=== PATIENT | male | born 1950 | race Caucasian/White ===

== ENCOUNTER 2020-11-11 15:44 | Inpatient (IN) | payer BC, MEDICARE ==
[2020-11-11] MEDS ORDERED: Ondansetron 4 MG/2 ML SDV IVPUSH ONE (16:58)
[2020-11-11] MEDS ORDERED: Sodium Chloride 0.9% 1,000 ML IV SCH ×2 (17:00→21:25)
--- NOTE | 2020-11-11 17:14 | EDM.PDOC ---
ED HPI GENERAL MEDICAL PROBLEM - General Chief Complaint: Fever Stated Complaint: FEVER,HEADACHE,CHILLS Time Seen by Provider: 11/11/20 15:54 Source of Information: Reports: Patient History Limitations: Reports: No Limitations - History of Present Illness INITIAL COMMENTS - FREE TEXT/NARRATIVE: 70 yo male presents to the ER with 2 day hx of generally not feeling well. early this AM he woke with fever. Nausea and vomiting throughout the day. Headache. He did take a tramadol earlier today fro his headache with some relief. poor appetite today. He has received COVID vaccination Headache Pain Score (Numeric/FACES): 9 - Related Data Allergies Allergy/AdvReac Type Severity Reaction Status Date / Time Sulfa (Sulfonamide Allergy Severe Hives Verified 11/11/20 16:13 Antibiotics) Home Meds: Home Meds Acetaminophen/traMADol [Ultracet] 2 tab PO QAM 08/05/14 [History] Aspirin [Low Dose Aspirin EC] 81 mg PO QAM 08/05/14 [History] Baclofen 10 mg PO QPM PRN 08/05/14 [History] Ibuprofen [Motrin] 400 mg PO QID PRN 08/05/14 [History] Losartan [Cozaar] 50 mg PO QPM 08/05/14 [History] Simvastatin 40 mg PO QPM 08/05/14 [History] atenoloL [Atenolol] 2 tab PO DAILY 11/11/20 [History] Past Medical History Cardiovascular History: Reports: Hypertension Respiratory History: Reports: None Gastrointestinal History: Reports: None Genitourinary History: Reports: None Musculoskeletal History: Reports: None Neurological History: Reports: None Psychiatric History: Reports: None Endocrine/Metabolic History: Reports: None Hematologic History: Reports: None Immunologic History: Reports: None Oncologic (Cancer) History: Reports: None Dermatologic History: Reports: None - Infectious Disease History Infectious Disease History: Reports: C-Difficile, Influenza, Measles, Mumps - Past Surgical History HEENT Surgical History: Reports: Tonsillectomy GI Surgical History: Reports: Hernia Repair/Other Neurological Surgical History: Reports: Lumbar Spine Musculoskeletal Surgical History: Reports: None Social & Family History - Tobacco Use Tobacco Use Status *Q: Never Tobacco User - Caffeine Use Caffeine Use: Reports: Coffee, Soda Caffeine Use Comment: occ - Recreational Drug Use Recreational Drug Use: No ED ROS GENERAL - Review of Systems Review Of Systems: See Below Constitutional: Reports: Fever, Chills, Malaise, Fatigue HEENT: Reports: Rhinitis, Sinus Problem. Denies: Throat Pain, Throat Swelling Respiratory: Reports: Cough. Denies: Shortness of Breath, Wheezing Cardiovascular: Denies: Chest Pain GI/Abdominal: Reports: Abdominal Pain, Nausea, Vomiting Skin: Denies: Rash Neurological: Reports: Headache ED EXAM, GI/ABD - Physical Exam Exam: See Below Exam Limited By: No Limitations General Appearance: Alert, WD/WN, No Apparent Distress Head: Atraumatic, Normocephalic Neck: Supple, Non-Tender, Lymphadenopathy (R), Lymphadenopathy (L) Respiratory/Chest: No Respiratory Distress, Lungs Clear, Normal Breath Sounds. No: Crackles, Rhonchi, Wheezing Cardiovascular: No Murmur, Tachycardia GI/Abdominal Exam: Soft, Non-Tender Neurological: Alert, Oriented Psychiatric: Normal Affect, Normal Mood Skin Exam: Warm, Dry, Intact, No Rash Course - Vital Signs Last Recorded V/S: Last Vital Signs Temp 36.6 C 11/11/20 23:00 Pulse 71 11/11/20 23:00 Resp 18 11/11/20 23:00 BP 101/53 L 11/11/20 23:00 Pulse Ox 93 L 11/11/20 23:00 - Orders/Labs/Meds Orders: Active Orders 24 hr Category Date Time Status Chest 2V [CR] Stat Exams 11/11/20 16:58 Taken CULTURE BLOOD [BC] Urgent Lab 11/11/20 18:15 Received CULTURE BLOOD [BC] Urgent Lab 11/11/20 18:26 Received Blood Culture x2 Reflex Set [OM.PC] Urgent Oth 11/11/20 18:03 Ordered Medication Orders Acetaminophen (Acetaminophen 325 Mg Tab) 650 mg PO Q4H PRN PRN Reason: Pain (Mild 1-3)/fever Acetaminophen (Acetaminophen 325 Mg Tab) 650 mg PO DAILY POR[facility] Aspirin (Aspirin 81 Mg Tab.Ec) 81 mg PO QAM P[facility] Atorvastatin Calcium (Atorvastatin 20 Mg Tab) 40 mg PO QPM POR[facility] Azithromycin (Azithromycin 250 Mg Tab) 500 mg PO Q24H PORSHA Last Admin: 11/11/20 22:04 Dose: 500 mg Documented by: DESHAUN Baclofen (Baclofen 10 Mg Tab) 10 mg PO QPM PRN PRN Reason: Spasms Guaifenesin/Dextromethorphan (Guaifenesin/Dextromethorphan 100-10 Mg/5 Ml Soln 10 Ml Cup) 10 ml PO Q4H PRN PRN Reason: Cough Sodium Chloride (Normal Saline) 1,000 mls @ 125 mls/hr IV ASDIRECTED PORSHA Ibuprofen (Ibuprofen 600 Mg Tab) 600 mg PO Q6H PRN PRN Reason: Pain/Fever Lorazepam (Lorazepam 2 Mg/Ml Sdv) 0.5 mg IVPUSH Q4H PRN PRN Reason: Nausea/Vomiting Losartan Potassium (Losartan 50 Mg Tab) 50 mg PO QPM [facility]OR[facility] Magnesium Hydroxide (Magnesium Hydroxide 400 Mg/5 Ml Susp 30 Ml Cup) 30 ml PO Q12H PRN PRN Reason: Constipation Melatonin (Melatonin 3 Mg Tab) 9 mg PO BEDTIME PRN PRN Reason: Sleep Ondansetron HCl (Ondansetron 4 Mg/2 Ml Sdv) 4 mg IV Q6H PRN PRN Reason: Nausea/Vomiting Ondansetron HCl (Ondansetron 4 Mg Tab.Dis) 4 mg PO Q6H PRN PRN Reason: Nausea able to take PO Senna/Docusate Sodium (Docusate Sodium/Sennosides 50-8.6 Mg Tab) 1 tab PO BID PRN PRN Reason: Constipation Tramadol HCl (Tramadol 50 Mg Tab) 75 mg PO QAM [facility] Labs: Laboratory Tests 11/11/20 11/11/20 11/11/20 Range/Units 17:11 17:11 17:14 WBC 24.5 H (4.5-11.0) K/uL RBC 4.99 (4.30-5.90) M/uL Hgb 15.8 H D (12.0-15.0) g/dL Hct 46.9 (40.0-54.0) % MCV 94 (80-98) fL MCH 32 H (27-31) pg MCHC 34 (32-36) % Plt Count 207 (150-400) K/uL Add Manual Diff Yes Neutrophils % (Manual) 58 (36-66) % Band Neutrophils % 28 H (5-11) % Lymphocytes % (Manual) 8 L (24-44) % Monocytes % (Manual) 6 (2-6) % Anisocytosis Few Macrocytosis Few Sodium 136 L (140-148) mmol/L Potassium 4.1 (3.6-5.2) mmol/L Chloride 99 L (100-108) mmol/L Carbon Dioxide 24 (21-32) mmol/L Anion Gap 17.1 H (5.0-14.0) mmol/L BUN 32 H D (7-18) mg/dL Creatinine 2.3 H D (0.8-1.3) mg/dL Est Cr Clr Drug Dosing TNP Estimated GFR (MDRD) 28 L (>60) Glucose 111 H (74-106) mg/dL Lactic Acid (0.4-2.0) mmol/L Calcium 9.1 (8.5-10.1) mg/dL SARS CoV-2 RNA Rapid NATANAEL Negative 11/11/20 Range/Units 18:03 WBC (4.5-11.0) K/uL RBC (4.30-5.90) M/uL Hgb (12.0-15.0) g/dL Hct (40.0-54.0) % MCV (80-98) fL MCH (27-31) pg MCHC (32-36) % Plt Count (150-400) K/uL Add Manual Diff Neutrophils % (Manual) (36-66) % Band Neutrophils % (5-11) % Lymphocytes % (Manual) (24-44) % Monocytes % (Manual) (2-6) % Anisocytosis Macrocytosis Sodium (140-148) mmol/L Potassium (3.6-5.2) mmol/L Chloride (100-108) mmol/L Carbon Dioxide (21-32) mmol/L Anion Gap (5.0-14.0) mmol/L BUN (7-18) mg/dL Creatinine (0.8-1.3) mg/dL Est Cr Clr Drug Dosing Estimated GFR (MDRD) (>60) Glucose (74-106) mg/dL Lactic Acid 1.7 (0.4-2.0) mmol/L Calcium (8.5-10.1) mg/dL SARS CoV-2 RNA Rapid NATANAEL Meds: Medications Generic Name Dose Route Start Last Admin Trade Name Freq PRN Reason Stop Dose Admin Acetaminophen 650 mg 11/11/20 21:25 Acetaminophen 325 Mg Tab PO Q4H PRN Pain (Mild 1-3)/fever Acetaminophen 650 mg 11/12/20 09:00 Acetaminophen 325 Mg Tab PO DAILY [facility] Aspirin 81 mg 11/12/20 09:00 Aspirin 81 Mg Tab.Ec PO QAM [facility] Atorvastatin Calcium 40 mg 11/12/20 17:00 Atorvastatin 20 Mg Tab PO QPM [facility] Azithromycin 500 mg 11/11/20 21:25 11/11/20 22:04 Azithromycin 250 Mg Tab PO 500 mg Q24H POR[facility] Administration Baclofen 10 mg 11/11/20 21:25 Baclofen 10 Mg Tab PO QPM PRN Spasms Guaifenesin/Dextromethorphan 10 ml 11/11/20 21:25 Guaifenesin/Dextromethorphan 100-10 Mg/5 Ml Soln 10 Ml Cup PO Q4H PRN Cough Sodium Chloride 1,000 mls @ 125 mls/hr 11/11/20 21:25 Normal Saline IV ASDIRECTED [facility] Ibuprofen 600 mg 11/11/20 21:25 Ibuprofen 600 Mg Tab PO Q6H PRN Pain/Fever Lorazepam 0.5 mg 11/11/20 21:25 Lorazepam 2 Mg/Ml Sdv IVPUSH Q4H PRN Nausea/Vomiting Losartan Potassium 50 mg 11/12/20 17:00 Losartan 50 Mg Tab PO QPM [facility] Magnesium Hydroxide 30 ml 11/11/20 21:25 Magnesium Hydroxide 400 Mg/5 Ml Susp 30 Ml Cup PO Q12H PRN Constipation Melatonin 9 mg 11/11/20 21:25 Melatonin 3 Mg Tab PO BEDTIME PRN Sleep Ondansetron HCl 4 mg 11/11/20 21:25 Ondansetron 4 Mg/2 Ml Sdv IV Q6H PRN Nausea/Vomiting Ondansetron HCl 4 mg 11/11/20 21:25 Ondansetron 4 Mg Tab.Dis PO Q6H PRN Nausea able to take PO Senna/Docusate Sodium 1 tab 11/11/20 21:25 Docusate Sodium/Sennosides 50-8.6 Mg Tab PO BID PRN Constipation Tramadol HCl 75 mg 11/12/20 09:00 Tramadol 50 Mg Tab PO QAM [facility] Discontinued Medications Generic Name Dose Route Start Last Admin Trade Name Freq PRN Reason Stop Dose Admin Acetaminophen 1,000 mg 11/11/20 17:55 11/11/20 18:01 Acetaminophen 500 Mg Tab PO 11/11/20 17:56 1,000 mg ONETIME ONE Administration Sodium Chloride 1,000 mls @ 999 mls/hr 11/11/20 17:00 11/11/20 17:51 Normal Saline IV 999 mls/hr ASDIRECTED PORSHA Administration Ciprofloxacin/Dextrose 400 mg/ 200 mls @ 200 mls/hr 11/11/20 19:18 11/11/20 19:37 Premix IV 11/11/20 20:17 200 mls/hr ONETIME ONE Administration Ondansetron HCl 4 mg 11/11/20 16:58 11/11/20 17:52 Ondansetron 4 Mg/2 Ml Sdv IVPUSH 11/11/20 16:59 4 mg ONETIME ONE Administration - Re-Assessments/Exams Free Text/Narrative Re-Assessment/Exam: 11/11/20 23:58 chest x-ray pneumonia. acute kidney injury will admit to Dr. Cooper Departure - Departure Time of Disposition: 23:59 Disposition: Admitted As Inpatient 65 Clinical Impression: Acute kidney injury Pneumonia Qualifiers: Pneumonia type: due to unspecified organism Laterality: left Lung location: lower lobe of lung Qualified Code(s): J18.9 - Pneumonia, unspecified organism - Discharge Information Sepsis Event Note (ED) - Evaluation Sepsis Screening Result: Possible Sepsis Risk - Focused Exam Vital Signs: Vital Signs Temp Pulse Resp BP Pulse Ox 11/11/20 17:52 38.1 C 83 20 133/80 93 L 11/11/20 16:21 36.7 C 102 H 20 116/98 H 92 L 11/11/20 16:09 36.7 C 102 H 20 116/98 H 92 L - My Orders Last 24 Hours: My Active Orders 11/11/20 16:58 Chest 2V [CR] Stat 11/11/20 18:03 Blood Culture x2 Reflex Set [OM.PC] Urgent 11/11/20 18:15 CULTURE BLOOD [BC] Urgent 11/11/20 18:26 CULTURE BLOOD [BC] Urgent - Assessment/Plan Last 24 Hours: My Active Orders 11/11/20 16:58 Chest 2V [CR] Stat 11/11/20 18:03 Blood Culture x2 Reflex Set [OM.PC] Urgent 11/11/20 18:15 CULTURE BLOOD [BC] Urgent 11/11/20 18:26 CULTURE BLOOD [BC] Urgent
[2020-11-11] MEDS ORDERED: Acetaminophen 500 MG Tab PO ONE (17:55)
[2020-11-11] MEDS ORDERED: Ciprofloxacin in D5W 400 MG in Premix Bag 1 BAG IV ONE ×2 (19:18)
--- NOTE | 2020-11-11 20:15 | PCM.HP.2 ---
H&P History of Present Illness - General Date of Service: 11/11/20 Admit Problem/Dx: Admission Diagnosis/Problem Admission Diagnosis/Problem Acute kidney injury Source of Information: Patient, Provider History Limitations: Reports: No Limitations - History of Present Illness Initial Comments - Free Text/Narative: CC: I was soaked with sweat HPI: Az presents to the emergency room with fevers, shaking chills, nausea, vomiting and weakness. He reports that yesterday morning he felt generally unwell but no specific symptoms. He thought he felt better as the day went on. Started to feel down again yesterday evening. Last night he woke up in the middle the night feeling very warm and was diaphoretic. Shortly thereafter he became very cold and had shaking chills. This persisted for a while and then he was subjectively very warm again. This morning he became nauseated and had several episodes of vomiting throughout the day. He has had very little to drink and nothing to eat today and very little yesterday. He does report mild cough with no sputum that started last night. He does not feel short of breath. He does not have any pleuritic chest pain and does not report any abdominal pain. No sore throat. He is not aware of any sick contacts. He does exercise regularly but has not the last 2 days because he has not felt well. Work-up in the emergency room revealed evidence for a left lung pneumonia with a white blood cell count of 24,000. He is not hypoxic at this time. His creatinine is 2.3 with a baseline of 1. He will be admitted for observation to initiate antibiotics and receive hydration. Headache Pain Score (Numeric/FACES): 7 - Related Data Allergies/Adverse Reactions: Allergies Allergy/AdvReac Type Severity Reaction Status Date / Time Sulfa (Sulfonamide Allergy Severe Hives Verified 11/11/20 16:13 Antibiotics) Home Medications: Home Meds Acetaminophen/traMADol [Ultracet] 2 tab PO QAM 08/05/14 [History] Aspirin [Low Dose Aspirin EC] 81 mg PO QAM 08/05/14 [History] Baclofen 10 mg PO QPM PRN 08/05/14 [History] Ibuprofen [Motrin] 400 mg PO QID PRN 08/05/14 [History] Losartan [Cozaar] 50 mg PO QPM 08/05/14 [History] Simvastatin 40 mg PO QPM 08/05/14 [History] Past Medical History Cardiovascular History: Reports: Hypertension Respiratory History: Reports: None Gastrointestinal History: Reports: None Genitourinary History: Reports: None Musculoskeletal History: Reports: None Neurological History: Reports: None Psychiatric History: Reports: None Endocrine/Metabolic History: Reports: None Hematologic History: Reports: None Immunologic History: Reports: None Oncologic (Cancer) History: Reports: None Dermatologic History: Reports: None - Infectious Disease History Infectious Disease History: Reports: C-Difficile, Influenza, Measles, Mumps - Past Surgical History HEENT Surgical History: Reports: Tonsillectomy GI Surgical History: Reports: Hernia Repair/Other Neurological Surgical History: Reports: Lumbar Spine Musculoskeletal Surgical History: Reports: None Social & Family History - Family History Cardiac: Reports: Heart Failure (father in 60's) - Tobacco Use Tobacco Use Status *Q: Never Tobacco User - Caffeine Use Caffeine Use: Reports: Coffee, Soda Caffeine Use Comment: occ - Recreational Drug Use Recreational Drug Use: No H&P Review of Systems - Review of Systems: Review Of Systems: See Below Free Text/Narrative: A complete 12 point review of systems was obtained. Pertinent positives and negatives are noted in the history of present illness. All other systems were reviewed and were negative except as noted. Exam - Exam Exam: See Below - Vital Signs Vital Signs: Last Vital Signs Temp 38.1 C 11/11/20 17:52 Pulse 83 11/11/20 17:52 Resp 20 11/11/20 17:52 BP 133/80 11/11/20 17:52 Pulse Ox 93 L 11/11/20 17:52 Weight: 103.4 kg - Exam Quality Assessment: No: Supplemental Oxygen General: Alert, Oriented, Cooperative. No: Mild Distress HEENT: Conjunctiva Clear. No: Mucosa Moist & [place] (dry), Scleral Icterus Neck: Supple, Trachea Midline. No: Lymphadenopathy Lungs: Normal Respiratory Effort, Decreased Breath Sounds (Mild left lung base), Crackles (Few left lung base) Cardiovascular: Regular Rate, Regular Rhythm. No: Systolic Murmur, Gallop/S3 GI/Abdominal Exam: Normal Bowel Sounds, Soft, Non-Tender, No Distention Back Exam: Normal Inspection, Full Range of Motion Extremities: No Pedal Edema. No: Increased Warmth Peripheral Pulses: 2+: Dorsalis Pedis (L), Dorsalis Pedis (R) Skin: Warm, Dry. No: Rash Neuro Extensive - Mental Status: Alert, Oriented x3, Nl Response to Commands Neuro Extensive - Motor, Sensory, Reflexes: No: Dysarthria, Abnormal Motor, Tremor Psychiatric: Alert, Normal Affect - Patient Data Lab Results Last 24 hrs: Laboratory Results - last 24 hr 11/11/20 11/11/20 11/11/20 Range/Units 17:11 17:11 17:14 WBC 24.5 H (4.5-11.0) K/uL RBC 4.99 (4.30-5.90) M/uL Hgb 15.8 H D (12.0-15.0) g/dL Hct 46.9 (40.0-54.0) % MCV 94 (80-98) fL MCH 32 H (27-31) pg MCHC 34 (32-36) % Plt Count 207 (150-400) K/uL Add Manual Diff Yes Neutrophils % (Manual) 58 (36-66) % Band Neutrophils % 28 H (5-11) % Lymphocytes % (Manual) 8 L (24-44) % Monocytes % (Manual) 6 (2-6) % Anisocytosis Few Macrocytosis Few Sodium 136 L (140-148) mmol/L Potassium 4.1 (3.6-5.2) mmol/L Chloride 99 L (100-108) mmol/L Carbon Dioxide 24 (21-32) mmol/L Anion Gap 17.1 H (5.0-14.0) mmol/L BUN 32 H D (7-18) mg/dL Creatinine 2.3 H D (0.8-1.3) mg/dL Est Cr Clr Drug Dosing TNP Estimated GFR (MDRD) 28 L (>60) Glucose 111 H (74-106) mg/dL Lactic Acid (0.4-2.0) mmol/L Calcium 9.1 (8.5-10.1) mg/dL SARS CoV-2 RNA Rapid [place]NAEL Negative 11/11/20 Range/Units 18:03 WBC (4.5-11.0) K/uL RBC (4.30-5.90) M/uL Hgb (12.0-15.0) g/dL Hct (40.0-54.0) % MCV (80-98) fL MCH (27-31) pg MCHC (32-36) % Plt Count (150-400) K/uL Add Manual Diff Neutrophils % (Manual) (36-66) % Band Neutrophils % (5-11) % Lymphocytes % (Manual) (24-44) % Monocytes % (Manual) (2-6) % Anisocytosis Macrocytosis Sodium (140-148) mmol/L Potassium (3.6-5.2) mmol/L Chloride (100-108) mmol/L Carbon Dioxide (21-32) mmol/L Anion Gap (5.0-14.0) mmol/L BUN (7-18) mg/dL Creatinine (0.8-1.3) mg/dL Est Cr Clr Drug Dosing Estimated GFR (MDRD) (>60) Glucose (74-106) mg/dL Lactic Acid 1.7 (0.4-2.0) mmol/L Calcium (8.5-10.1) mg/dL SARS CoV-2 RNA Rapid NATANAEL Result Diagrams: 11/11/20 17:11 11/11/20 17:11 Imaging Impressions Last 24 hrs: Chest [id number] personally reviewed-there is evidence for a slight left lower lung infiltrate. Heart size is normal. No obvious mass or effusion. There is an apparent device near the anterior spinal column in the mid thoracic spine Sepsis Event Note - Evaluation Sepsis Screening Result: Possible Sepsis Risk - Focused Exam Vital Signs: Vital Signs Temp Pulse Resp BP Pulse Ox 11/11/20 17:52 38.1 C 83 20 133/80 93 L 11/11/20 16:21 36.7 C 102 H 20 116/98 H 92 L 11/11/20 16:09 36.7 C 102 H 20 116/98 H 92 L *Q Meaningful Use (ADM) - VTE Risk Assess *Q Each Risk Factor Represents 1 Point: Obesity ( BMI > 25 kg/m2), Serious lung disease including pneumonia Total Score 1 Point Risk Factors: 2 Each Risk Factor Represents 2 Points: Age 60 - 74 Years Total Score 2 Point Risk Factors: 2 Each Risk Factor Represents 3 Points: None Total Score 3 Point Risk Factors: 0 Each Risk Factor Represents 5 Points: None Total Score 5 Point Risk Factors: 0 Venous Thromboembolism Risk Factor Score *Q: 4 - Problem List (1) Acute kidney injury SNOMED Code(s): 22681473, 46702270 ICD Code: N17.9 - ACUTE KIDNEY FAILURE, UNSPECIFIED Status: Acute Current Visit: Yes (2) Left lower lobe pneumonia SNOMED Code(s): 357640125 ICD Code: J18.9 - PNEUMONIA, UNSPECIFIED ORGANISM Status: Acute Current Visit: Yes Qualifiers: Pneumonia type: due to unspecified organism Qualified Code(s): J18.9 - Pneumonia, unspecified organism (3) Hypertension SNOMED Code(s): 03708937 ICD Code: I10 - ESSENTIAL (PRIMARY) HYPERTENSION Status: Chronic Current Visit: Yes Qualifiers: Hypertension type: primary hypertension Qualified Code(s): I10 - Essential (primary) hypertension Problem List Initiated/Reviewed/Updated: Yes Orders Last 24hrs: Active Orders 24 hr Category Date Time Status Patient Status Manage Transfer [TRANSFER] Routine ADT 11/11/20 20:07 Ordered Chest 2V [CR] Stat Exams 11/11/20 16:58 Taken CULTURE BLOOD [BC] Urgent Lab 11/11/20 18:15 Received CULTURE BLOOD [BC] Urgent Lab 11/11/20 18:26 Received Ciprofloxacin in D5W [Cipro in D5W 400 MG/200 ML] 400 Med 11/11/20 19:18 Active mg Premix Bag 1 bag IV ONETIME Sodium Chloride 0.9% [Normal Saline] 1,000 ml Med 11/11/20 17:00 Active IV ASDIRECTED Blood Culture x2 Reflex Set [OM.PC] Urgent Oth 11/11/20 18:03 Ordered Isolation [COMM] Stat Oth 11/11/20 16:56 Ordered Resuscitation Status Routine Resus Stat 11/11/20 20:08 Ordered Medication Orders Sodium Chloride (Normal Saline) 1,000 mls @ 999 mls/hr IV ASDIRECTED PORSHA Last Admin: 11/11/20 17:51 Dose: 999 mls/hr Documented by: PREILOR Ciprofloxacin/Dextrose 400 mg/ (Premix) 200 mls @ 200 mls/hr IV ONETIME ONE Stop: 11/11/20 20:17 Last Admin: 11/11/20 19:37 Dose: 200 mls/hr Documented by: MARTA Assessment/Plan Comment:: ASSESSMENT AND PLAN - Acute kidney injury-creatinine 2.3 with a baseline of 1. Likely related to intravascular volume depletion with poor intake and vomiting. I anticipate this will improve quickly with IV fluids. -Fluids overnight and labs in the morning Left lower lobe pneumonia-not hypoxic. CURB 65 score is 2. White count is elevated but he does not appear ill and has relatively few symptoms of pneumonia. No chronic diseases to suggest he needs real broad-spectrum antibiotics. -Antibiotic coverage with a azithromycin -Supplement oxygen if he becomes hypoxic -Symptomatic management of cough Essential hypertension-blood pressure well controlled by history. -Continue home medications Maintenance issues - -DVT prophylaxis-mechanical -GI prophylaxis-not indicated -Nutrition-regular -Barton catheter-not indicated CODE STATUS -full code Admission justification -this patient will be admitted for observation to initiate antibiotics and provide hydration along with repeat laboratory studies in the morning. Disposition -I anticipate discharge home after the hospital stay Primary care physician -Dr. Osmin Cooper M.D. - Mortality Measure Prognosis:: Good
[2020-11-11] MEDS ORDERED: Azithromycin 250 MG Tab PO SCH (21:25)
[2020-11-11] MEDS ORDERED: Magnesium Hydroxide 400 MG/5 ML Susp 30 ML Cup PO PRN (21:25)
[2020-11-11] MEDS ORDERED: Baclofen 10 MG Tab PO PRN (21:25)
[2020-11-11] MEDS ORDERED: guaiFENesin/Dextromethorphan 100-10 MG/5 ML Soln 10 ML Cup PO PRN (21:25)
[2020-11-11] MEDS ORDERED: Melatonin 3 MG Tab PO PRN (21:25)
[2020-11-11] MEDS ORDERED: Ondansetron 4 MG Tab.DIS PO PRN (21:25)
[2020-11-11] MEDS ORDERED: LORazepam 2 MG/ML SDV IVPUSH PRN (21:25)
[2020-11-12] MEDS: Ondansetron 4 MG/2 ML SDV IV PRN ×3 (04:56→21:13)
[2020-11-12] MEDS: Acetaminophen 325 MG Tab PO PRN ×2 (04:56→21:12)
[2020-11-12] MEDS ORDERED: TRAMADOL PO SCH (09:00)
[2020-11-12] MEDS ORDERED: ACETAMINOPHEN PO SCH (09:00)
[2020-11-12] MEDS: Acetaminophen 325 MG Tab PO SCH (09:41)
[2020-11-12] MEDS: cefTRIAXone 2 GM in Sodium Chloride 0.9% 50 ML IV SCH (09:42)
[2020-11-12] MEDS: Aspirin 81 MG Tab.EC PO SCH (09:42)
[2020-11-12] MEDS: traMADol 50 MG Tab PO SCH (09:46)
--- NOTE | 2020-11-12 10:49 | PCM.PN ---
- General Info Date of Service: 11/12/20 Subjective Update: There were no acute events overnight. Patient did have 1 out of the 2 blood culture bottles come back positive for gram-negative rods. He reports that he feels well today and much better than yesterday. He does report some mild left lower quadrant abdominal pain today. No significant cough. Intermittent nausea but no vomiting. Blood pressure and heart rate have been stable. White count is slightly higher and creatinine is slightly higher this morning. Functional Status: Reports: Pain Controlled, Tolerating Diet - Review of Systems General: Denies: Fever Pulmonary: Denies: Shortness of Breath, Cough Gastrointestinal: Reports: Abdominal Pain (LLQ) - Patient Data Vitals - Most Recent: Last Vital Signs Temp 36.9 C 11/12/20 07:40 Pulse 78 11/12/20 07:40 Resp 18 11/12/20 07:40 BP 137/80 11/12/20 07:40 Pulse Ox 95 11/12/20 07:40 Weight - Most Recent: 102.965 kg I&O - Last 24 Hours: Intake & Output 11/11/20 11/12/20 11/12/20 22:59 06:59 14:59 Intake Total 1299 Balance 1299 Lab Results Last 24 Hours: Laboratory Results - last 24 hr 11/11/20 11/11/20 11/11/20 Range/Units 17:11 17:11 17:14 WBC 24.5 H (4.5-11.0) K/uL RBC 4.99 (4.30-5.90) M/uL Hgb 15.8 H D (12.0-15.0) g/dL Hct 46.9 (40.0-54.0) % MCV 94 (80-98) fL MCH 32 H (27-31) pg MCHC 34 (32-36) % Plt Count 207 (150-400) K/uL Add Manual Diff Yes Neutrophils % (Manual) 58 (36-66) % Band Neutrophils % 28 H (5-11) % Lymphocytes % (Manual) 8 L (24-44) % Monocytes % (Manual) 6 (2-6) % Anisocytosis Few Macrocytosis Few Sodium 136 L (140-148) mmol/L Potassium 4.1 (3.6-5.2) mmol/L Chloride 99 L (100-108) mmol/L Carbon Dioxide 24 (21-32) mmol/L Anion Gap 17.1 H (5.0-14.0) mmol/L BUN 32 H D (7-18) mg/dL Creatinine 2.3 H D (0.8-1.3) mg/dL Est Cr Clr Drug Dosing TNP Estimated GFR (MDRD) 28 L (>60) Glucose 111 H (74-106) mg/dL Lactic Acid (0.4-2.0) mmol/L Calcium 9.1 (8.5-10.1) mg/dL SARS CoV-2 RNA Rapid [facility] Negative 11/11/20 11/12/20 11/12/20 Range/Units 18:03 04:25 04:25 WBC 26.7 H (4.5-11.0) K/uL RBC 4.36 (4.30-5.90) M/uL Hgb 13.7 D (12.0-15.0) g/dL Hct 41.4 (40.0-54.0) % MCV 95 (80-98) fL MCH 31 (27-31) pg MCHC 33 (32-36) % Plt Count 195 (150-400) K/uL Add Manual Diff Neutrophils % (Manual) (36-66) % Band Neutrophils % (5-11) % Lymphocytes % (Manual) (24-44) % Monocytes % (Manual) (2-6) % Anisocytosis Macrocytosis Sodium 137 L (140-148) mmol/L Potassium 4.4 (3.6-5.2) mmol/L Chloride 101 (100-108) mmol/L Carbon Dioxide 26 (21-32) mmol/L Anion Gap 14.4 H (5.0-14.0) mmol/L BUN 40 H (7-18) mg/dL Creatinine 2.6 H (0.8-1.3) mg/dL Est Cr Clr Drug Dosing 25.21 Estimated GFR (MDRD) 24 L (>60) Glucose 118 H (74-106) mg/dL Lactic Acid 1.7 (0.4-2.0) mmol/L Calcium 8.6 (8.5-10.1) mg/dL SARS CoV-2 RNA Rapid [facility] Noel Results Last 24 Hours: Microbiology 11/11/20 18:15 Aerobic Blood Culture - Preliminary Blood - Arm, Right Med Orders - Current: Current Medications Acetaminophen (Acetaminophen 325 Mg Tab) 650 mg PO Q4H PRN PRN Reason: Pain (Mild 1-3)/fever Last Admin: 11/12/20 04:56 Dose: 650 mg Documented by: Acetaminophen (Acetaminophen 325 Mg Tab) 650 mg PO DAILY [facility] Last Admin: 11/12/20 09:41 Dose: 650 mg Documented by: Aspirin (Aspirin 81 Mg Tab.Ec) 81 mg PO QAM [facility] Last Admin: 11/12/20 09:42 Dose: 81 mg Documented by: Atorvastatin Calcium (Atorvastatin 20 Mg Tab) 40 mg PO QPM [facility] Azithromycin (Azithromycin 250 Mg Tab) 500 mg PO Q24H [facility] Last Admin: 11/11/20 22:04 Dose: 500 mg Documented by: Baclofen (Baclofen 10 Mg Tab) 10 mg PO QPM PRN PRN Reason: Spasms Guaifenesin/Dextromethorphan (Guaifenesin/Dextromethorphan 100-10 Mg/5 Ml Soln 10 Ml Cup) 10 ml PO Q4H PRN PRN Reason: Cough Ceftriaxone Sodium 2 gm/ (Sodium Chloride) 50 mls @ 100 mls/hr IV Q24H [facility] Last Admin: 11/12/20 09:42 Dose: 100 mls/hr Documented by: Ibuprofen (Ibuprofen 600 Mg Tab) 600 mg PO Q6H PRN PRN Reason: Pain/Fever Lorazepam (Lorazepam 2 Mg/Ml Sdv) 0.5 mg IVPUSH Q4H PRN PRN Reason: Nausea/Vomiting Losartan Potassium (Losartan 50 Mg Tab) 50 mg PO QPM [facility] Magnesium Hydroxide (Magnesium Hydroxide 400 Mg/5 Ml Susp 30 Ml Cup) 30 ml PO Q12H PRN PRN Reason: Constipation Melatonin (Melatonin 3 Mg Tab) 9 mg PO BEDTIME PRN PRN Reason: Sleep Ondansetron HCl (Ondansetron 4 Mg/2 Ml Sdv) 4 mg IV Q6H PRN PRN Reason: Nausea/Vomiting Last Admin: 11/12/20 09:50 Dose: 4 mg Documented by: Ondansetron HCl (Ondansetron 4 Mg Tab.Dis) 4 mg PO Q6H PRN PRN Reason: Nausea able to take PO Senna/Docusate Sodium (Docusate Sodium/Sennosides 50-8.6 Mg Tab) 1 tab PO BID PRN PRN Reason: Constipation Tramadol HCl (Tramadol 50 Mg Tab) 75 mg PO QAM [facility] Last Admin: 11/12/20 09:46 Dose: 75 mg Documented by: Discontinued Medications Acetaminophen (Acetaminophen 500 Mg Tab) 1,000 mg PO ONETIME ONE Stop: 11/11/20 17:56 Last Admin: 11/11/20 18:01 Dose: 1,000 mg Documented by: Sodium Chloride (Normal Saline) 1,000 mls @ 999 mls/hr IV ASDIRECTED [facility] Last Admin: 11/11/20 17:51 Dose: 999 mls/hr Documented by: Ciprofloxacin/Dextrose 400 mg/ (Premix) 200 mls @ 200 mls/hr IV ONETIME ONE Stop: 11/11/20 20:17 Last Admin: 11/11/20 19:37 Dose: 200 mls/hr Documented by: Sodium Chloride (Normal Saline) 1,000 mls @ 125 mls/hr IV ASDIRECTED [facility] Last Admin: 11/12/20 05:04 Dose: 125 mls/hr Documented by: Ondansetron HCl (Ondansetron 4 Mg/2 Ml Sdv) 4 mg IVPUSH ONETIME ONE Stop: 11/11/20 16:59 Last Admin: 11/11/20 17:52 Dose: 4 mg Documented by: - Exam Quality Assessment: No: Supplemental Oxygen General: Alert, Oriented, Cooperative, No Acute Distress Lungs: Normal Respiratory Effort, Crackles (few left lung base) Cardiovascular: Regular Rate, Regular Rhythm GI/Abdominal Exam: Soft, No Distention, Tender (mild to moderate left side and L LQ) Extremities: No Pedal Edema. No: Increased Warmth Skin: Warm, Dry Psy/Mental Status: Alert, Normal Affect - Patient Data Lab Results Last 24 hrs: Laboratory Results - last 24 hr 11/11/20 11/11/20 11/11/20 Range/Units 17:11 17:11 17:14 WBC 24.5 H (4.5-11.0) K/uL RBC 4.99 (4.30-5.90) M/uL Hgb 15.8 H D (12.0-15.0) g/dL Hct 46.9 (40.0-54.0) % MCV 94 (80-98) fL MCH 32 H (27-31) pg MCHC 34 (32-36) % Plt Count 207 (150-400) K/uL Add Manual Diff Yes Neutrophils % (Manual) 58 (36-66) % Band Neutrophils % 28 H (5-11) % Lymphocytes % (Manual) 8 L (24-44) % Monocytes % (Manual) 6 (2-6) % Anisocytosis Few Macrocytosis Few Sodium 136 L (140-148) mmol/L Potassium 4.1 (3.6-5.2) mmol/L Chloride 99 L (100-108) mmol/L Carbon Dioxide 24 (21-32) mmol/L Anion Gap 17.1 H (5.0-14.0) mmol/L BUN 32 H D (7-18) mg/dL Creatinine 2.3 H D (0.8-1.3) mg/dL Est Cr Clr Drug Dosing TNP Estimated GFR (MDRD) 28 L (>60) Glucose 111 H (74-106) mg/dL Lactic Acid (0.4-2.0) mmol/L Calcium 9.1 (8.5-10.1) mg/dL SARS CoV-2 RNA Rapid [place] Negative 11/11/20 11/12/20 11/12/20 Range/Units 18:03 04:25 04:25 WBC 26.7 H (4.5-11.0) K/uL RBC 4.36 (4.30-5.90) M/uL Hgb 13.7 D (12.0-15.0) g/dL Hct 41.4 (40.0-54.0) % MCV 95 (80-98) fL MCH 31 (27-31) pg MCHC 33 (32-36) % Plt Count 195 (150-400) K/uL Add Manual Diff Neutrophils % (Manual) (36-66) % Band Neutrophils % (5-11) % Lymphocytes % (Manual) (24-44) % Monocytes % (Manual) (2-6) % Anisocytosis Macrocytosis Sodium 137 L (140-148) mmol/L Potassium 4.4 (3.6-5.2) mmol/L Chloride 101 (100-108) mmol/L Carbon Dioxide 26 (21-32) mmol/L Anion Gap 14.4 H (5.0-14.0) mmol/L BUN 40 H (7-18) mg/dL Creatinine 2.6 H (0.8-1.3) mg/dL Est Cr Clr Drug Dosing 25.21 Estimated GFR (MDRD) 24 L (>60) Glucose 118 H (74-106) mg/dL Lactic Acid 1.7 (0.4-2.0) mmol/L Calcium 8.6 (8.5-10.1) mg/dL SARS CoV-2 RNA Rapid [facility] Result Diagrams: 11/12/20 04:25 11/12/20 04:25 Noel Results Last 24 hrs: Microbiology 11/11/20 18:15 Aerobic Blood Culture - Preliminary Blood - Arm, Right Sepsis Event Note - Evaluation Sepsis Screening Result: Possible Sepsis Risk - Focused Exam Vital Signs: Vital Signs Temp Temp Pulse Resp BP Pulse Ox 11/12/20 07:40 36.9 C 78 18 137/80 95 11/12/20 04:56 37.4 C 11/12/20 04:49 37.4 C 11/12/20 02:46 36.8 C 65 16 115/75 94 L 11/11/20 23:00 36.6 C 71 18 101/53 L 93 L - Problem List & Annotations (1) Acute kidney injury SNOMED Code(s): 84473805, 63635130 Code(s): N17.9 - ACUTE KIDNEY FAILURE, UNSPECIFIED Status: Acute Current Visit: Yes (2) Left lower lobe pneumonia SNOMED Code(s): 400162075 Code(s): J18.9 - PNEUMONIA, UNSPECIFIED ORGANISM Status: Acute Current Visit: Yes Qualifiers: Pneumonia type: due to unspecified organism Qualified Code(s): J18.9 - Pneumonia, unspecified organism (3) Hypertension SNOMED Code(s): 01074626 Code(s): I10 - ESSENTIAL (PRIMARY) HYPERTENSION Status: Chronic Current Visit: Yes Qualifiers: Hypertension type: primary hypertension Qualified Code(s): I10 - Essential (primary) hypertension - Problem List Review Problem List Initiated/Reviewed/Updated: Yes - My Orders Last 24 Hours: My Active Orders 11/11/20 Dinner Regular Diet [DIET] 11/11/20 20:08 Resuscitation Status Routine 11/11/20 21:25 Acetaminophen [TylenoL] 650 mg PO Q4H PRN Azithromycin [Zithromax] 500 mg PO Q24H Baclofen [Lioresal] 10 mg PO QPM PRN Dextromethorphan/guaiFENesin [Robitussin DM] 10 ml PO Q4H PRN Docusate Sodium/Sennosides [Senna Plus] 1 tab PO BID PRN Ibuprofen [Motrin] 600 mg PO Q6H PRN LORazepam [Ativan] 0.5 mg IVPUSH Q4H PRN Magnesium Hydroxide [Milk of Magnesia] 30 ml PO Q12H PRN Melatonin 9 mg PO BEDTIME PRN Ondansetron [Zofran ODT] 4 mg PO Q6H PRN Ondansetron [Zofran] 4 mg IV Q6H PRN 11/11/20 21:25 Patient Status [ADT] Routine Antiembolic Devices [RC] .Routine Intake and Output [RC] QSHIFT Notify Provider Vital Signs [RC] ASDIRECTED Oxygen Therapy [RC] PRN Up ad Kayla [RC] ASDIRECTED VTE/DVT Education [RC] Per Unit Routine Vital Signs [RC] Q4H Sequential Compression Device [OM.PC] Routine 11/12/20 08:29 UA W/MICROSCOPIC [URIN] Routine 11/12/20 09:00 Acetaminophen [TylenoL] 650 mg PO DAILY Aspirin [Halfprin] 81 mg PO QAM cefTRIAXone [Rocephin] 2 gm Sodium Chloride 0.9% [Normal Saline] 50 ml IV Q24H traMADol [Ultram] 75 mg PO QAM 11/12/20 10:47 Abdomen Pelvis wo Cont [CT] Routine 11/12/20 10:48 Convert IV to Saline Lock [OM.PC] Routine 11/12/20 17:00 Losartan [Cozaar] 50 mg PO QPM atorvaSTATin [Lipitor] 40 mg PO QPM 11/13/20 05:00 BASIC METABOLIC PANEL,BMP [CHEM] Timed CBC W/O DIFF,HEMOGRAM [HEME] Timed (1) - Plan Plan:: ASSESSMENT AND PLAN - Acute kidney injury-creatinine 2.3 with a baseline of 1. Creatinine slightly higher again today but I think this is reflective of yesterday rather than hydration overnight. I would anticipate this will improve with additional IV fluid hydration. -Fluids overnight and labs in the morning Left lower lobe pneumonia-not hypoxic. CURB 65 score is 2. White count is slightly higher again. He does have gram-negative bacteremia as discussed below but pneumonia does not seem like a likely source. -Antibiotic coverage with azithromycin and ceftriaxone -Supplement oxygen if he becomes hypoxic -Symptomatic management of cough Gram-negative bacteremia-1 out of 2 blood cultures positive. He does not appear to be ill enough from his pneumonia to explain bacteremia with a respiratory infection. He is having some left lower quadrant pain is working to proceed with a CT scan of the abdomen and pelvis to see if there is an abscess or some sort of explanation for the bacteremia. -CT scan abdomen and pelvis -Antibiotic coverage with ceftriaxone Essential hypertension-blood pressure well controlled by history. -Continue home medications Maintenance issues - -DVT prophylaxis-mechanical -GI prophylaxis-not indicated -Nutrition-regular -Barton catheter-not indicated CODE STATUS -full code Admission justification -this patient was initially admitted to observation status. He has gram-negative bacteremia and his kidney function has worsened rather than improving since admission. He will be transitioned to inpatient status at this time for management of gram-negative bacteremia with unclear source at this time. Disposition -I anticipate discharge home after the hospital stay Primary care physician -Dr. Osmin Cooper M.D.
--- NOTE | 2020-11-12 12:24 | CRLCT ---
For Patients: As a result of the Cures Act, medical imaging exams and procedure reports are released immediately into your electronic medical record. You may view this report before your referring provider. If you have questions, please contact your health care provider. INDICATION: Left lower quadrant abdominal pain. Gram positive bacteremia. Pneumonia. TECHNIQUE: Noncontrast CT scan of the abdomen and pelvis. FINDINGS: The lung bases show minimal dependent atelectasis. Densely calcified pleural plaques in the left lung base. No focal abnormalities identified in the visualized portions of the liver, and to the pancreas, and adrenal glands. The spleen is absent. Mild left-sided hydronephrosis. 2 mm stone in the left UVJ. Normal appearance of the right kidney. No other uroliths. No right-sided hydronephrosis. Mild colonic diverticulosis with no evidence of diverticulitis. The remainder of the GI tract is incompletely distended but shows no gross abnormalities. Normal appendix. No retroperitoneal, pelvic sidewall, or mesenteric adenopathy. Atherosclerotic vascular calcifications. Degenerative changes of the spine. Stabilization hardware in the lower lumbar spine. Epidural catheters. IMPRESSION: 1. 2 mm stone in the left UVJ causes mild left-sided hydronephrosis. Dictated by Mulugeta Camacho MD @ 11/12/2020 12:22:48 PM Please note that all CT scans at this facility use dose modulation, iterative reconstruction, and/or weight-based dosing when appropriate to reduce radiation dose to as low as reasonably achievable. Dictated by: Mulugeta Camacho MD @ 11/12/2020 12:22:57 (Electronically Signed)
[2020-11-12] MEDS: Ibuprofen 600 MG Tab PO PRN (12:32)
[2020-11-12] MEDS: Sodium Chloride 0.9% 1,000 ML IV SCH ×2 (15:20→22:14)
[2020-11-12] MEDS: Losartan 50 MG Tab PO SCH (18:08)
[2020-11-12] MEDS: atorvaSTATin 20 MG Tab PO SCH (18:08)
[2020-11-13] MEDS: Acetaminophen 325 MG Tab PO PRN ×2 (04:05→20:10)
[2020-11-13] MEDS: Ondansetron 4 MG/2 ML SDV IV PRN (04:06)
[2020-11-13] MEDS: Sodium Chloride 0.9% 1,000 ML IV SCH (06:07)
[2020-11-13] MEDS: Ibuprofen 600 MG Tab PO PRN ×2 (08:17→17:02)
[2020-11-13] MEDS: cefTRIAXone 2 GM in Sodium Chloride 0.9% 50 ML IV SCH (08:17)
[2020-11-13] MEDS: Aspirin 81 MG Tab.EC PO SCH (08:17)
--- NOTE | 2020-11-13 09:55 | CR ---
CHEST: 2 view CLINICAL HISTORY:Cough COMPARISON:2012 FINDINGS: The heart size, pulmonary vascularity and hilar structures are normal. No infiltrate effusion or pneumothorax is seen. There are atherosclerotic changes in the aorta. There are pleural fibrocalcific changes in the left lower hemithorax IMPRESSION: No acute cardiopulmonary process. Left lower hemithorax pleural fibrocalcific changes
[2020-11-13] MEDS: traMADol 50 MG Tab PO SCH ×2 (11:50→13:36)
[2020-11-13] MEDS: Acetaminophen 325 MG Tab PO SCH ×2 (11:50→13:37)
[2020-11-13] MEDS: Tamsulosin 0.4 MG Cap.ER PO SCH ×2 (12:45→17:03)
--- NOTE | 2020-11-13 13:15 | PCM.PN ---
- General Info Date of Service: 11/13/20 Subjective Update: Mr. Neal feels improved over the last 24 hours. Flank and abdominal pain have resolved. He did have chills last night but that also seems to have resolved an d his appetite has improved. Functional Status: Reports: Tolerating Diet, Ambulating, Urinating - Review of Systems General: Reports: Weakness, Fatigue. Denies: Fever, Chills Pulmonary: Reports: No Symptoms Cardiovascular: Reports: No Symptoms Gastrointestinal: Reports: No Symptoms Genitourinary: Reports: No Symptoms - Patient Data Vitals - Most Recent: Last Vital Signs Temp 94.5 F L 11/13/20 11:02 Pulse 77 11/13/20 11:02 Resp 16 11/13/20 11:02 BP 138/78 11/13/20 11:02 Pulse Ox 96 11/13/20 11:02 Weight - Most Recent: 226 lb 15.983 oz I&O - Last 24 Hours: Intake & Output 11/12/20 11/13/20 11/13/20 22:59 06:59 14:59 Intake Total 2191 1402 50 Output Total 500 150 500 Balance 1691 1252 -450 Lab Results Last 24 Hours: Laboratory Results - last 24 hr 11/13/20 11/13/20 Range/Units 04:20 04:20 WBC 18.1 H (4.5-11.0) K/uL RBC 4.45 (4.30-5.90) M/uL Hgb 13.8 (12.0-15.0) g/dL Hct 41.9 (40.0-54.0) % MCV 94 (80-98) fL MCH 31 (27-31) pg MCHC 33 (32-36) % Plt Count 189 (150-400) K/uL Sodium 140 (140-148) mmol/L Potassium 4.4 (3.6-5.2) mmol/L Chloride 101 (100-108) mmol/L Carbon Dioxide 23 (21-32) mmol/L Anion Gap 15.9 H (5.0-14.0) mmol/L BUN 36 H (7-18) mg/dL Creatinine 2.4 H (0.8-1.3) mg/dL Est Cr Clr Drug Dosing 27.31 mL/min Estimated GFR (MDRD) 27 L (>60) Glucose 111 H (74-106) mg/dL Calcium 8.8 (8.5-10.1) mg/dL Noel Results Last 24 Hours: Microbiology 11/11/20 18:26 Aerobic Blood Culture - Preliminary Blood - Arm, Right Anaerobic Blood Culture - Preliminary 11/11/20 18:15 Aerobic Blood Culture - Preliminary Blood - Arm, Right Anaerobic Blood Culture - Preliminary Med Orders - Current: Current Medications Acetaminophen (Acetaminophen 325 Mg Tab) 650 mg PO Q4H PRN PRN Reason: Pain (Mild 1-3)/fever Last Admin: 11/13/20 04:05 Dose: 650 mg Documented by: Acetaminophen (Acetaminophen 325 Mg Tab) 650 mg PO DAILY [facility] Last Admin: 11/13/20 11:50 Dose: Not Given Documented by: Aspirin (Aspirin 81 Mg Tab.Ec) 81 mg PO QAM [facility] Last Admin: 11/13/20 08:17 Dose: 81 mg Documented by: Atorvastatin Calcium (Atorvastatin 20 Mg Tab) 40 mg PO QPM [facility] Last Admin: 11/12/20 18:08 Dose: 40 mg Documented by: Baclofen (Baclofen 10 Mg Tab) 10 mg PO QPM PRN PRN Reason: Spasms Guaifenesin/Dextromethorphan (Guaifenesin/Dextromethorphan 100-10 Mg/5 Ml Soln 10 Ml Cup) 10 ml PO Q4H PRN PRN Reason: Cough Ceftriaxone Sodium 2 gm/ (Sodium Chloride) 50 mls @ 100 mls/hr IV Q24H [facility] Last Admin: 11/13/20 08:17 Dose: 100 mls/hr Documented by: Ibuprofen (Ibuprofen 600 Mg Tab) 600 mg PO Q6H PRN PRN Reason: Pain/Fever Last Admin: 11/13/20 08:17 Dose: 600 mg Documented by: Lorazepam (Lorazepam 2 Mg/Ml Sdv) 0.5 mg IVPUSH Q4H PRN PRN Reason: Nausea/Vomiting Losartan Potassium (Losartan 50 Mg Tab) 50 mg PO QPM [facility] Last Admin: 11/12/20 18:08 Dose: 50 mg Documented by: Magnesium Hydroxide (Magnesium Hydroxide 400 Mg/5 Ml Susp 30 Ml Cup) 30 ml PO Q12H PRN PRN Reason: Constipation Melatonin (Melatonin 3 Mg Tab) 9 mg PO BEDTIME PRN PRN Reason: Sleep Ondansetron HCl (Ondansetron 4 Mg/2 Ml Sdv) 4 mg IV Q6H PRN PRN Reason: Nausea/Vomiting Last Admin: 11/13/20 04:06 Dose: 4 mg Documented by: Ondansetron HCl (Ondansetron 4 Mg Tab.Dis) 4 mg PO Q6H PRN PRN Reason: Nausea able to take PO Senna/Docusate Sodium (Docusate Sodium/Sennosides 50-8.6 Mg Tab) 1 tab PO BID PRN PRN Reason: Constipation Tamsulosin HCl (Tamsulosin 0.4 Mg Cap.Er) 0.4 mg PO BIDPC [facility] Last Admin: 11/13/20 12:45 Dose: 0.4 mg Documented by: Tramadol HCl ([facility] 50 Mg Tab) [facility] Last Admin: 11/13/20 11:50 Dose: Not Given Documented by: Discontinued Medications Acetaminophen (Acetaminophen 500 Mg Tab) 1,000 mg PO ONETIME ONE Stop: 11/11/20 17:56 Last Admin: 11/11/20 18:01 Dose: 1,000 mg Documented by: Azithromycin (Azithromycin 250 Mg Tab) 500 mg PO Q24H [facility] Last Admin: 11/11/20 22:04 Dose: 500 mg Documented by: Sodium Chloride (Normal Saline) 1,000 mls @ 999 mls/hr IV [facility] Last Admin: 11/11/20 17:51 Dose: 999 mls/hr Documented by: Ciprofloxacin/Dextrose 400 mg/ (Premix) 200 mls @ 200 mls/hr IV ONETIME ONE Stop: 11/11/20 20:17 Last Admin: 11/11/20 19:37 Dose: 200 mls/hr Documented by: Sodium Chloride (Normal Saline) 1,000 mls @ 125 mls/hr IV [facility] Last Admin: 11/12/20 05:04 Dose: 125 mls/hr Documented by: Sodium Chloride (Normal Saline) 1,000 mls @ 125 mls/hr IV [facility] Last Admin: 11/13/20 06:07 Dose: 125 mls/hr Documented by: Ondansetron HCl (Ondansetron 4 Mg/2 Ml Sdv) 4 mg IVPUSH ONETIME ONE Stop: 11/11/20 16:59 Last Admin: 11/11/20 17:52 Dose: 4 mg Documented by: - Exam Quality Assessment: DVT Prophylaxis General: Alert, Oriented, Cooperative, Mild Distress Lungs: Clear to Auscultation, Normal Respiratory Effort Cardiovascular: Regular Rate, Regular Rhythm, No Murmurs GI/Abdominal Exam: Soft, Non-Tender, No Organomegaly, No Distention Back Exam: Normal Inspection, Full Range of Motion Extremities: Non-Tender, No Pedal Edema - Patient Data Lab Results Last 24 hrs: Laboratory Results - last 24 hr 11/13/20 11/13/20 Range/Units 04:20 04:20 WBC 18.1 H (4.5-11.0) K/uL RBC 4.45 (4.30-5.90) M/uL Hgb 13.8 (12.0-15.0) g/dL Hct 41.9 (40.0-54.0) % MCV 94 (80-98) fL MCH 31 (27-31) pg MCHC 33 (32-36) % Plt Count 189 (150-400) K/uL Sodium 140 (140-148) mmol/L Potassium 4.4 (3.6-5.2) mmol/L Chloride 101 (100-108) mmol/L Carbon Dioxide 23 (21-32) mmol/L Anion Gap 15.9 H (5.0-14.0) mmol/L BUN 36 H (7-18) mg/dL Creatinine 2.4 H (0.8-1.3) mg/dL Est Cr Clr Drug Dosing 27.31 mL/min Estimated GFR (MDRD) 27 L (>60) Glucose 111 H (74-106) mg/dL Calcium 8.8 (8.5-10.1) mg/dL Result Diagrams: 11/13/20 04:20 11/13/20 04:20 Noel Results Last 24 hrs: Microbiology 11/11/20 18:26 Aerobic Blood Culture - Preliminary Blood - Arm, Right Anaerobic Blood Culture - Preliminary 11/11/20 18:15 Aerobic Blood Culture - Preliminary Blood - Arm, Right Anaerobic Blood Culture - Preliminary Sepsis Event Note - Evaluation Sepsis Screening Result: Possible Sepsis Risk - Focused Exam Vital Signs: Vital Signs Temp Temp Pulse Resp BP Pulse Ox 11/13/20 11:02 94.5 F L 77 16 138/78 96 11/13/20 08:04 96.3 F L 80 16 120/91 H 92 L 11/13/20 05:19 166/88 H 11/13/20 04:00 98 F 90 20 198/109 H 90 L - Problem List Review Problem List Initiated/Reviewed/Updated: Yes - My Orders Last 24 Hours: My Active Orders 11/13/20 10:55 Patient Status [ADT] Routine 11/13/20 10:57 Tamsulosin [Flomax] 0.4 mg PO BIDPC 11/13/20 13:10 Convert IV to Saline Lock [OM.PC] Routine 11/14/20 05:00 BASIC METABOLIC PANEL,BMP [CHEM] Timed CBC WITH AUTO DIFF [HEME] Timed - Plan Plan:: ASSESSMENT AND PLAN - Acute kidney injury-creatinine 2.3 with a baseline of 1. Creatinine is stable since yesterday but still elevated from baseline. Ureteral calculus-likely cause of bacteremia and pain -Pain medication as needed Gram-negative bacteremia-1 out of 2 blood cultures positive. Likely urinary tract in origin and related to underlying ureteral calculus -Antibiotic coverage with ceftriaxone Essential hypertension-blood pressure well controlled by history. -Continue home medications Maintenance issues - -DVT prophylaxis-mechanical -GI prophylaxis-not indicated -Nutrition-regular -Barton catheter-not indicated CODE STATUS -full code Admission justification -this patient was initially admitted to observation status. He has gram-negative bacteremia and his kidney function has worsened rather than improving since admission. He will be transitioned to inpatient status at this time for management of gram-negative bacteremia with unclear source at this time. Disposition -I anticipate discharge home after the hospital stay Primary care physician -Dr. Solorio
[2020-11-13] MEDS: atorvaSTATin 20 MG Tab PO SCH (17:03)
[2020-11-13] MEDS: Losartan 50 MG Tab PO SCH (17:03)
[2020-11-14] MEDS: Acetaminophen 325 MG Tab PO PRN ×5 (03:23→23:24)
[2020-11-14] MEDS: Tamsulosin 0.4 MG Cap.ER PO SCH ×2 (07:25→18:19)
[2020-11-14] MEDS: Aspirin 81 MG Tab.EC PO SCH (09:38)
[2020-11-14] MEDS: Acetaminophen 325 MG Tab PO SCH (09:39)
[2020-11-14] MEDS: traMADol 50 MG Tab PO SCH (09:39)
[2020-11-14] MEDS: cefTRIAXone 2 GM in Sodium Chloride 0.9% 50 ML IV SCH (09:40)
--- NOTE | 2020-11-14 15:42 | PCM.PN ---
- General Info Date of Service: 11/14/20 Subjective Update: Mr. Neal improvement in symptoms over the last 24 hours. He does not yet feel that he is back to baseline but definitely improved over the last few days. [facility] te blood cell count has improved and renal function now showing some improvement as well. - Review of Systems General: Reports: Fatigue, Chills Pulmonary: Reports: No Symptoms Cardiovascular: Reports: No Symptoms Gastrointestinal: Reports: No Symptoms Genitourinary: Reports: No Symptoms - Patient Data Vitals - Most Recent: Last Vital Signs Temp 97.5 F 11/14/20 13:00 Pulse 78 11/14/20 13:00 Resp 16 11/14/20 14:45 BP 187/96 H 11/14/20 14:45 Pulse Ox 95 11/14/20 14:45 Weight - Most Recent: 226 lb 15.983 oz I&O - Last 24 Hours: Intake & Output 11/14/20 11/14/20 11/14/20 06:59 14:59 22:59 Intake Total 700 Output Total 550 800 Balance 150 -800 Lab Results Last 24 Hours: Laboratory Results - last 24 hr 11/14/20 11/14/20 Range/Units 05:30 05:30 WBC 14.2 H (4.5-11.0) K/uL RBC 4.12 L (4.30-5.90) M/uL Hgb 12.7 (12.0-15.0) g/dL Hct 38.3 L (40.0-54.0) % MCV 93 (80-98) fL MCH 31 (27-31) pg MCHC 33 (32-36) % Plt Count 206 (150-400) K/uL Neut % (Auto) 77.3 H (36-66) % Lymph % (Auto) 9.0 L (24-44) % [place] % (Auto) 13.2 H (2-6) % Eos % (Auto) 0.4 L (2-4) % Baso % (Auto) 0.1 (0-1) % Sodium 139 L (140-148) mmol/L Potassium 4.0 (3.6-5.2) mmol/L Chloride 104 (100-108) mmol/L Carbon Dioxide 25 (21-32) mmol/L Anion Gap 14.0 (5.0-14.0) mmol/L BUN 34 H (7-18) mg/dL Creatinine 2.0 H (0.8-1.3) mg/dL Est Cr Clr Drug Dosing 32.90 mL/min Estimated GFR (MDRD) 33 L (>60) Glucose 98 (74-106) mg/dL Calcium 8.9 (8.5-10.1) mg/dL Noel Results Last 24 Hours: Microbiology 11/11/20 18:26 Aerobic Blood Culture - Final Blood - Arm, Right Escherichia Coli. Anaerobic Blood Culture - Final Escherichia Coli 11/11/20 18:15 Aerobic Blood Culture - Final Blood - Arm, Right Escherichia Coli Anaerobic Blood Culture - Final Not Reportable Med Orders - Current: Current Medications Acetaminophen (Acetaminophen 325 Mg Tab) 650 mg PO Q4H PRN PRN Reason: Pain (Mild 1-3)/fever Last Admin: 11/14/20 13:48 Dose: 650 mg Documented by: Acetaminophen (Acetaminophen 325 Mg Tab) 650 mg PO DAILY [facility] Last Admin: 11/14/20 09:39 Dose: 650 mg Documented by: Aspirin (Aspirin 81 Mg Tab.Ec) 81 mg PO QAM [facility] Last Admin: 11/14/20 09:38 Dose: 81 mg Documented by: Atorvastatin Calcium (Atorvastatin 20 Mg Tab) 40 mg PO QPM [facility] Last Admin: 11/13/20 17:03 Dose: 40 mg Documented by: Baclofen (Baclofen 10 Mg Tab) 10 mg PO QPM PRN PRN Reason: Spasms Guaifenesin/Dextromethorphan (Guaifenesin/Dextromethorphan 100-10 Mg/5 Ml Soln 10 Ml Cup) 10 ml PO Q4H PRN PRN Reason: Cough Ceftriaxone Sodium 2 gm/ (Sodium Chloride) 50 mls @ 100 mls/hr IV Q24H [facility] Last Admin: 11/14/20 09:40 Dose: 100 mls/hr Documented by: Lorazepam (Lorazepam 2 Mg/Ml Sdv) 0.5 mg IVPUSH Q4H PRN PRN Reason: Nausea/Vomiting Losartan Potassium (Losartan 50 Mg Tab) 50 mg PO QPM [facility] Last Admin: 11/13/20 17:03 Dose: 50 mg Documented by: Magnesium Hydroxide (Magnesium Hydroxide 400 Mg/5 Ml Susp 30 Ml Cup) 30 ml PO Q12H PRN PRN Reason: Constipation Melatonin (Melatonin 3 Mg Tab) 9 mg PO BEDTIME PRN PRN Reason: Sleep Ondansetron HCl (Ondansetron 4 Mg/2 Ml Sdv) 4 mg IV Q6H PRN PRN Reason: Nausea/Vomiting Last Admin: 11/13/20 04:06 Dose: 4 mg Documented by: Ondansetron HCl (Ondansetron 4 Mg Tab.Dis) 4 mg PO Q6H PRN PRN Reason: Nausea able to take PO Senna/Docusate Sodium (Docusate Sodium/Sennosides 50-8.6 Mg Tab) 1 tab PO BID PRN PRN Reason: Constipation Tamsulosin HCl (Tamsulosin 0.4 Mg Cap.Er) [facility] Last Admin: 11/14/20 07:25 Dose: 0.4 mg Documented by: Tramadol HCl (Tramadol 50 Mg Tab) [facility] Last Admin: 11/14/20 09:39 Dose: 75 mg Documented by: Discontinued Medications Acetaminophen (Acetaminophen 500 Mg Tab) 1,000 mg PO ONETIME ONE Stop: 11/11/20 17:56 Last Admin: 11/11/20 18:01 Dose: 1,000 mg Documented by: Azithromycin (Azithromycin 250 Mg Tab) 500 mg PO Q24H [facility] Last Admin: 11/11/20 22:04 Dose: 500 mg Documented by: Sodium Chloride (Normal Saline) 1,000 mls @ 999 mls/hr IV [facility] Last Admin: 11/11/20 17:51 Dose: 999 mls/hr Documented by: Ciprofloxacin/Dextrose 400 mg/ (Premix) 200 mls @ 200 mls/hr IV ONETIME ONE Stop: 11/11/20 20:17 Last Admin: 11/11/20 19:37 Dose: 200 mls/hr Documented by: Sodium Chloride (Normal Saline) 1,000 mls @ 125 [facility] Last Admin: 11/12/20 05:04 Dose: 125 mls/hr Documented by: Sodium Chloride (Normal Saline) 1,000 mls @ 125 mls/hr IV [facility] Last Admin: 11/13/20 06:07 Dose: 125 mls/hr Documented by: Ibuprofen (Ibuprofen 600 Mg Tab) 600 mg PO Q6H PRN PRN Reason: Pain/Fever Last Admin: 11/13/20 17:02 Dose: 600 mg Documented by: Ondansetron HCl (Ondansetron 4 Mg/2 Ml Sdv) 4 mg IVPUSH ONETIME ONE Stop: 11/11/20 16:59 Last Admin: 11/11/20 17:52 Dose: 4 mg Documented by: - Exam Quality Assessment: DVT Prophylaxis General: Alert, Oriented, Cooperative, Mild Distress Lungs: Clear to Auscultation, Normal Respiratory Effort Cardiovascular: Regular Rate, Regular Rhythm, No Murmurs GI/Abdominal Exam: Soft, Non-Tender, No Organomegaly, No Distention Extremities: Non-Tender, No Pedal Edema - Patient Data Lab Results Last 24 hrs: Laboratory Results - last 24 hr 11/14/20 11/14/20 Range/Units 05:30 05:30 WBC 14.2 H (4.5-11.0) K/uL RBC 4.12 L (4.30-5.90) M/uL Hgb 12.7 (12.0-15.0) g/dL Hct 38.3 L (40.0-54.0) % MCV 93 (80-98) fL MCH 31 (27-31) pg MCHC 33 (32-36) % Plt Count 206 (150-400) K/uL Neut % (Auto) 77.3 H (36-66) % Lymph % (Auto) 9.0 L (24-44) % [place] % (Auto) 13.2 H (2-6) % Eos % (Auto) 0.4 L (2-4) % Baso % (Auto) 0.1 (0-1) % Sodium 139 L (140-148) mmol/L Potassium 4.0 (3.6-5.2) mmol/L Chloride 104 (100-108) mmol/L Carbon Dioxide 25 (21-32) mmol/L Anion Gap 14.0 (5.0-14.0) mmol/L BUN 34 H (7-18) mg/dL Creatinine 2.0 H (0.8-1.3) mg/dL Est Cr Clr Drug Dosing 32.90 mL/min Estimated GFR (MDRD) 33 L (>60) Glucose 98 (74-106) mg/dL Calcium 8.9 (8.5-10.1) mg/dL Result Diagrams: 11/14/20 05:30 11/14/20 05:30 Noel Results Last 24 hrs: Microbiology 11/11/20 18:26 Aerobic Blood Culture - Final Blood - Arm, Right Escherichia Coli. Anaerobic Blood Culture - Final Escherichia Coli 11/11/20 18:15 Aerobic Blood Culture - Final Blood - Arm, Right Escherichia Coli Anaerobic Blood Culture - Final Not Reportable Sepsis Event Note - Evaluation Sepsis Screening Result: Severe Sepsis Risk - Focused Exam Vital Signs: Vital Signs Temp Pulse Resp BP Pulse Ox 11/14/20 14:45 16 187/96 H 95 11/14/20 13:00 97.5 F 78 16 184/94 H 95 11/14/20 07:25 97.8 F 84 16 172/93 H 95 - Problem List Review Problem List Initiated/Reviewed/Updated: Yes - My Orders Last 24 Hours: My Active Orders 11/15/20 05:00 BASIC METABOLIC PANEL,BMP [CHEM] Timed CBC WITH AUTO DIFF [HEME] Timed - Plan Plan:: ASSESSMENT AND PLAN - Acute kidney injury-renal function appears to be slowly improving Ureteral calculus-likely cause of bacteremia and pain -Pain medication as needed Gram-negative bacteremia-1 out of 2 blood cultures positive. Likely urinary tract in origin and related to underlying ureteral calculus. Urine culture is growing pansensitive E. coli -Antibiotic coverage with ceftriaxone Essential hypertension-blood pressure well controlled by history. -Continue home medications Maintenance issues - -DVT prophylaxis-mechanical -GI prophylaxis-not indicated -Nutrition-regular -Barton catheter-not indicated CODE STATUS -full code Admission justification -this patient was initially admitted to observation status. He has gram-negative bacteremia and his kidney function has worsened rather than improving since admission. He will be transitioned to inpatient status at this time for management of gram-negative bacteremia with unclear source at this time. Disposition -I anticipate discharge home after the hospital stay Primary care physician -Dr. Solorio
[2020-11-14] MEDS: Losartan 50 MG Tab PO SCH (16:16)
[2020-11-14] MEDS: atorvaSTATin 20 MG Tab PO SCH (16:16)
[2020-11-15] MEDS: Acetaminophen 325 MG Tab PO PRN ×3 (04:03→12:08)
[2020-11-15] MEDS: traMADol 50 MG Tab PO SCH (08:10)
[2020-11-15] MEDS: Acetaminophen 325 MG Tab PO SCH (08:10)
[2020-11-15] MEDS: Aspirin 81 MG Tab.EC PO SCH (08:11)
[2020-11-15] MEDS: cefTRIAXone 2 GM in Sodium Chloride 0.9% 50 ML IV SCH (08:12)
[2020-11-15] MEDS: Tamsulosin 0.4 MG Cap.ER PO SCH (08:18)
[2020-11-15 11:46] VITALS: BP 170/90; PULSE 80
--- NOTE | 2020-11-15 15:25 | PCM.DCSUM1 ---
Discharge Summary - Hospital Course Brief History: Mr. Neal is a 70-year-old gentleman who was admitted through the emergency department with fever and weakness secondary to urinary tract infection and a ureteral calculus. - Discharge Data Discharge Date: 11/15/20 Discharge Disposition: Home, Self-Care 01 Condition: Fair - Referral to Home Health Primary Care Physician: Az Solorio MD - Discharge Diagnosis/Problem(s) (1) Sepsis SNOMED Code(s): 56358546 ICD Code: A41.9 - SEPSIS, UNSPECIFIED ORGANISM Status: Acute Current Visit: Yes (2) UTI (urinary tract infection) SNOMED Code(s): 00048762 ICD Code: N39.0 - URINARY TRACT INFECTION, SITE NOT SPECIFIED Status: Acute Current Visit: Yes (3) Acute kidney injury SNOMED Code(s): 18952095, 22838559 ICD Code: N17.9 - ACUTE KIDNEY FAILURE, UNSPECIFIED Status: Acute Current Visit: Yes (4) Ureteral stone with hydronephrosis SNOMED Code(s): 215323189 ICD Code: N13.2 - HYDRONEPHROSIS WITH RENAL AND URETERAL CALCULOUS OBSTRUCTION Status: Acute Current Visit: Yes (5) Hypertension SNOMED Code(s): 34745776 ICD Code: I10 - ESSENTIAL (PRIMARY) HYPERTENSION Status: Chronic Current Visit: Yes Qualifiers: Hypertension type: primary hypertension Qualified Code(s): I10 - Essential (primary) hypertension - Patient Summary/Data Hospital Course: Mr. Neal presents to the emergency room with fevers, shaking chills, nausea, vomiting and weakness. He reports that yesterday morning he felt generally unwell but no specific symptoms. He thought he felt better as the day went on. Started to feel down again yesterday evening. Last night he woke up in the middle the night feeling very warm and was diaphoretic. Shortly thereafter he became very cold and had shaking chills. This persisted for a while and then he was subjectively very warm again. This morning he became nauseated and had several episodes of vomiting throughout the day. White blood cell count was significantly elevated and his creatinine was elevated from baseline at 2.3. He was felt to have sepsis with acute kidney injury and was started on IV antibiotic therapy with ceftriaxone. Initially there was question of possible pneumonia on follow-up there was noted to be no infiltrate on chest x-ray. He did receive IV fluids per sepsis protocol. Following day he did report flank and abdominal pain, CT scan of the abdomen and pelvis did document a small ureteral calculus which was felt to be the source of infection and abdominal pain. Urine cultures had been obtained and did grow out pansensitive E. coli. 2 of 4 blood culture bottles also grew out E. coli. He was started on Flomax 0.4 mg p.o. twice daily. He gradually felt better on a daily basis and had significant improvement in his renal function although it had not returned to baseline by the time of discharge. On the evening prior to admission he felt that he did pass the stone and by the morning of discharge was feeling significantly improved. He will be discharged home on additional 6 days of oral antibiotic therapy with cephalexin because of the positive blood cultures. Follow-up appointment will be scheduled with his primary care provider within 1 week. Activity will be as tolerated and he will resume his usual diet. - Discharge Plan *PRESCRIPTION DRUG MONITORING PROGRAM REVIEWED*: Not Applicable *COPY OF PRESCRIPTION DRUG MONITORING REPORT IN PATIENT JODI: Not Applicable Prescriptions/Med Rec: cephALEXin [Cephalexin] 500 mg PO Q8H #18 tablet Home Medications: Home Meds Acetaminophen/traMADol [Ultracet] 2 tab PO QAM 08/05/14 [History] Aspirin [Low Dose Aspirin EC] 81 mg PO QAM 08/05/14 [History] Baclofen 10 mg PO QPM PRN 08/05/14 [History] Ibuprofen [Motrin] 400 mg PO QID PRN 08/05/14 [History] Losartan [Cozaar] 50 mg PO QPM 08/05/14 [History] Simvastatin 40 mg PO QPM 08/05/14 [History] atenoloL [Atenolol] 2 tab PO DAILY 11/11/20 [History] cephALEXin [Cephalexin] 500 mg PO Q8H #18 tablet 11/15/20 [Rx] Referrals: Az Solorio MD [Primary Care Provider] - 11/22/20 1:30 pm (Please arrive 15 minutes early to register for your appointment.) - Discharge Summary/Plan Comment DC Time >30 min.: No Total # of Minutes for Discharge Time: 20 - Patient Data Vitals - Most Recent: Last Vital Signs Temp 98.1 F 11/15/20 02:49 Pulse 80 11/15/20 11:00 Resp 18 11/15/20 11:00 BP 170/90 H 11/15/20 11:00 Pulse Ox 95 11/15/20 02:49 Weight - Most Recent: 226 lb 15.983 oz I&O - Last 24 hours: Intake & Output 11/15/20 11/15/20 11/15/20 06:59 14:59 22:59 Intake Total 700 Output Total 750 100 Balance -50 -100 Lab Results - Last 24 hrs: Laboratory Results - last 24 hr 11/15/20 11/15/20 Range/Units 04:20 04:20 WBC 13.1 H (4.5-11.0) K/uL RBC 4.42 (4.30-5.90) M/uL Hgb 13.5 (12.0-15.0) g/dL Hct 40.2 (40.0-54.0) % MCV 91 (80-98) fL MCH 31 (27-31) pg MCHC 34 (32-36) % Plt Count 232 (150-400) K/uL Neut % (Auto) 70.4 H (36-66) % Lymph % (Auto) 11.9 L (24-44) % [place] % (Auto) 17.2 H (2-6) % Eos % (Auto) 0.3 L (2-4) % Baso % (Auto) 0.2 (0-1) % Sodium 140 (140-148) mmol/L Potassium 4.2 (3.6-5.2) mmol/L Chloride 102 (100-108) mmol/L Carbon Dioxide 27 (21-32) mmol/L Anion Gap 10.8 (5.0-14.0) mmol/L BUN 24 H (7-18) mg/dL Creatinine 1.6 H (0.8-1.3) mg/dL Est Cr Clr Drug Dosing 41.12 mL/min Estimated GFR (MDRD) 43 L (>60) Glucose 100 (74-106) mg/dL Calcium 8.9 (8.5-10.1) mg/dL Med Orders - Current: Current Medications Acetaminophen (Acetaminophen 325 Mg Tab) 650 mg PO Q4H PRN PRN Reason: Pain (Mild 1-3)/fever Last Admin: 11/15/20 12:08 Dose: 650 mg Documented by: Acetaminophen (Acetaminophen 325 Mg Tab) 650 mg PO DAILY [facility] Last Admin: 11/15/20 08:10 Dose: Not Given Documented by: Aspirin (Aspirin 81 Mg Tab.Ec) 81 mg PO QAM [facility] Last Admin: 11/15/20 08:11 Dose: 81 mg Documented by: Atorvastatin Calcium (Atorvastatin 20 Mg Tab) 40 mg PO QPM [facility] Last Admin: 11/14/20 16:16 Dose: 40 mg Documented by: Baclofen (Baclofen 10 Mg Tab) 10 mg PO QPM PRN PRN Reason: Spasms Guaifenesin/Dextromethorphan (Guaifenesin/Dextromethorphan 100-10 Mg/5 Ml Soln 10 Ml Cup) 10 ml PO Q4H PRN PRN Reason: Cough Ceftriaxone Sodium 2 gm/ (Sodium Chloride) 50 mls @ 100 mls/hr IV Q24H [facility] Last Admin: 11/15/20 08:12 Dose: 100 mls/hr Documented by: Lorazepam (Lorazepam 2 Mg/Ml Sdv) 0.5 mg IVPUSH Q4H PRN PRN Reason: Nausea/Vomiting Losartan Potassium (Losartan 50 Mg Tab) 50 mg PO QPM [facility] Last Admin: 11/14/20 16:16 Dose: 50 mg Documented by: Magnesium Hydroxide (Magnesium Hydroxide 400 Mg/5 Ml Susp 30 Ml Cup) 30 ml PO Q12H PRN PRN Reason: Constipation Melatonin (Melatonin 3 Mg Tab) 9 mg PO BEDTIME PRN PRN Reason: Sleep Ondansetron HCl (Ondansetron 4 Mg/2 Ml Sdv) 4 mg IV Q6H PRN PRN Reason: Nausea/Vomiting Last Admin: 11/13/20 04:06 Dose: 4 mg Documented by: Ondansetron HCl (Ondansetron 4 Mg Tab.Dis) 4 mg PO Q6H PRN PRN Reason: Nausea able to take PO Senna/Docusate Sodium (Docusate Sodium/Sennosides 50-8.6 Mg Tab) 1 tab PO BID PRN PRN Reason: Constipation Tamsulosin HCl (Tamsulosin 0.4 Mg Cap.Er) 0.4 mg PO BIDPC [facility] Last Admin: 11/15/20 08:18 Dose: 0.4 mg Documented by: Tramadol HCl (Tramadol 50 Mg Tab) 75 mg PO QAM [facility] Last Admin: 11/15/20 08:10 Dose: 75 mg Documented by: Discontinued Medications Acetaminophen (Acetaminophen 500 Mg Tab) 1,000 mg PO ONETIME ONE Stop: 11/11/20 17:56 Last Admin: 11/11/20 18:01 Dose: 1,000 mg Documented by: Azithromycin (Azithromycin 250 Mg Tab) 500 mg PO Q24H [facility] Last Admin: 11/11/20 22:04 Dose: 500 mg Documented by: Sodium Chloride (Normal Saline) 1,000 mls @ 999 mls/hr IV [facility] Last Admin: 11/11/20 17:51 Dose: 999 mls/hr Documented by: Ciprofloxacin/Dextrose 400 mg/ (Premix) 200 mls @ 200 mls/hr IV ONETIME ONE Stop: 11/11/20 20:17 Last Admin: 11/11/20 19:37 Dose: 200 mls/hr Documented by: Sodium Chloride (Normal Saline) 1,000 mls @ 125 mls/hr IV [facility] Last Admin: 11/12/20 05:04 Dose: 125 mls/hr Documented by: Sodium Chloride (Normal Saline) 1,000 mls @ 125 mls/hr IV [facility] Last Admin: 11/13/20 06:07 Dose: 125 mls/hr Documented by: Ibuprofen (Ibuprofen 600 Mg Tab) 600 mg PO Q6H PRN PRN Reason: Pain/Fever Last Admin: 11/13/20 17:02 Dose: 600 mg Documented by: Ondansetron HCl (Ondansetron 4 Mg/2 Ml Sdv) 4 mg IVPUSH ONETIME ONE Stop: 11/11/20 16:59 Last Admin: 11/11/20 17:52 Dose: 4 mg Documented by: - Exam General: Reports: Alert, Oriented, Cooperative, Mild Distress Lungs: Reports: Clear to Auscultation, Normal Respiratory Effort Cardiovascular: Reports: Regular Rate, Regular Rhythm, No Murmurs GI/Abdominal Exam: Soft, Non-Tender, No Organomegaly, No Distention Extremities: Non-Tender, No Pedal Edema
== END 2020-11-15 15:18 | disposition home or self-care (01) | DRG 872 ==
LOC: JP.ED 15:44 → JP.MS 20:07 → OBSVTOIN 11-12 11:43
PROVIDERS: ADMIT Internal Medicine; ATTEND Hospitalist
DX: A41.51 Sepsis due to Escherichia coli [E. coli] (principal); J18.9 Pneumonia, unspecified organism; N13.2 Hydronephrosis with renal and ureteral calculous obstruction; N17.9 Acute kidney failure, unspecified; N13.6 Pyonephrosis; I10 Essential (primary) hypertension; Z20.822 Contact with and (suspected) exposure to COVID-19; Z88.2 Allergy status to sulfonamides; Z79.82 Long term (current) use of aspirin; Z79.899 Other long term (current) drug therapy; Z98.890 Other specified postprocedural states
CPT/HCPCS: 36415; 71046; 71046-26; 74176; 80048; 81001; 83605; 85025; 85027; 87040; 87088; 87186; 96365; 96367; 96375; 99285-25; A9270-GY; J0696; J0744; J2405; J7030; U0002